=== PATIENT | female | born 2000 | race Caucasian/White ===

== ENCOUNTER 2019-01-24 18:10 | Emergency (ER) | payer SELFPAY ==
[~2019-01-24] VITALS: Ht 165.1 cm; Wt 49.9 kg
[2019-01-24 18:31] VITALS: BP 114/47
--- NOTE | 2019-01-24 18:37 | NUR ---
Patient ambulated to bed 2. RN evaluating patient at bedside.
[2019-01-24] MEDS ORDERED: PREN-380 PO (18:39)
--- NOTE | 2019-01-24 18:40 | NUR ---
Mari rm in [facility] - 01/24/19 at 1843 by ROCHELLE heart tones 152
--- NOTE | 2019-01-24 18:40 | NUR ---
heart tone done by l & d nurse [id number]
--- NOTE | 2019-01-24 18:45 | NUR ---
PT IS A 18 Y/O FEMALE WHO PRESENTS TO THE ED C/O ABD PAIN. PER PATIENT IS C/O ABD CRAMPING. PT REPORTS 5/10 CRAMPING ABD PAIN THAT DOES NOT RADIATE. PT IS CURRENTLY 18 WEEKS S, , LMP 09/20/18. PT DENIES VAGINAL BLEEDING. PT DENIES CP, SOB, N/V/D. PT AWAKE AND ALERT, RR EVEN/UNLABORED. PT REPOSITIONED FOR COMFORT, BED IN LOWEST POSITION. ER PROVIDER NOTIFIED. WILL CONTINUE TO MONITOR.
[2019-01-24 19:56] LABS: APPEARANCE,URINE CLEAR (CLEAR); BILIRUBIN,URINE NEGATIVE (NEGATIVE); BLOOD, URINE NEGATIVE (NEGATIVE); COLOR,URINE YELLOW (YELLOW); LEUKOCYTE ESTERASE ,URINE NEGATIVE (NEGATIVE); NITRITE, URINE NEGATIVE (NEGATIVE); PH,URINE 6.5 (5.0-9.0); UGLUCOSE NEGATIVE (NEGATIVE)
[2019-01-24 20:39] VITALS: BP 110/54
--- NOTE | 2019-01-24 20:39 | NUR ---
PATIENT ELOPED FROM FACILITY. DISCHARGE INSTRUCTIONS NOT GIVEN TO PATIENT. DR. BRAMBILA NOTIFIED.
== END 2019-01-24 20:39 | disposition left against medical advice (07) ==
LOC: MED 18:10
DX: O26.892 Other specified pregnancy related conditions, second trimester (principal); R10.9 Unspecified abdominal pain; Z3A.16 16 weeks gestation of pregnancy; Z79.899 Other long term (current) drug therapy
CPT/HCPCS: 76805; 81003; 81025; 87086; 99284; Q0092

== ENCOUNTER 2019-03-28 19:02 | Emergency (ER) | payer SELFPAY ==
[~2019-03-28] VITALS: Ht 160 cm; Wt 58.1 kg
[~2019-03-28 19:02] MED LIST: PREN-380 PO
[2019-03-28 19:19] VITALS: BP 105/60
--- NOTE | 2019-03-28 19:21 | NUR ---
CALLED UP L & D , AND NOTIFIED ERMD, DR JOAQUIN WILL TAKE CARE OF IT , AND MADE ORDERS.
--- NOTE | 2019-03-28 19:25 | NUR ---
L & D STAFF BRIANNE RN , NOTIFIED THAT PATIENT WILL STAY IN ER.
--- NOTE | 2019-03-28 19:40 | NUR ---
PATIENT AMBULATED TO ER BED 3.
--- NOTE | 2019-03-28 19:51 | NUR ---
DR COLÓN AT BEDSIDE
--- NOTE | 2019-03-28 19:51 | NUR ---
18 Y FEMALE BIB BOYFRIEND C/O LOWER BACK AND ABD PAIN FOR 3 DAYS. DENIES VAGINAL BLEEDING. DENIES N/V/D. LMP 12.5. 29 WEEKS. ONLY COMPALINING OF BACK AND ABDOMINAL PAIN AT THIS TIME 04/08. ABDOMEN ROUND. VSS. PT [id number]. UPPER SORBIAN SPEAKING, DR JOAQUIN TRANSLATING. BED IS DOWN, LOCKED, BED RAIL X 1, DR JOAQUIN AT BEDSIDE.
[2019-03-28 20:47] LABS: BASOPHILS % (AUTO) 0.3 % (0.0-2.0); EOSINOPHILS # (AUTO) 0.1 K/uL (0-0.4); EOSINOPHILS % (AUTO) 0.7 % (0.0-4.0); HEMATOCRIT 33.5 % (36-48); HEMOGLOBIN 11.5 g/dL (12.0-16.0); LYMPHOCYTES % (AUTO) 18.5 % (20.5-51.1); MEAN CORPUSCULAR HEMOGLOBIN 33 pg (27-31); MEAN CORPUSCULAR HGB CONC 34 g/dL (33-37); MEAN CORPUSCULAR VOLUME 96.3 fL (80-94); MONOCYTES # (AUTO) 0.6 K/uL (0.8-1.0); MONOCYTES % (AUTO) 5.9 % (1.7-9.3); NEUTROPHILS # (AUTO) 8.1 K/uL (1.8-7.7); NEUTROPHILS % (AUTO) 74.6 % (42.2-75.2); PLATELET COUNT (AUTO) 256 K/uL (140-450); RED BLOOD CELL COUNT(AUTO) 3.48 MIL/uL (4.20-5.40); RED CELL DISTRIBUTION WIDTH 13.8 % (11.6-13.7); WHITE BLOOD COUNT (AUTO) 10.9 K/uL (4.5-11.0)
[2019-03-28 21:03] LABS: APPEARANCE,URINE CLEAR (CLEAR); BILIRUBIN,URINE NEGATIVE (NEGATIVE); BLOOD, URINE NEGATIVE (NEGATIVE); COLOR,URINE YELLOW (YELLOW); LEUKOCYTE ESTERASE ,URINE TRACE (NEGATIVE); NITRITE, URINE NEGATIVE (NEGATIVE); PH,URINE 6.5 (5.0-9.0); UGLUCOSE NEGATIVE (NEGATIVE)
--- NOTE | 2019-03-28 21:07 | NUR ---
REPORT GIVEN TO RUBEN CALI, TRANSFER OF CARE AT THIS TIME
[2019-03-28 21:18] LABS: ALBUMIN 2.8 g/dL (3.4-5.0); ANION GAP 11.9 (8-16); CARBON DIOXIDE 26.6 mmol/L (21-32); CREATININE 0.4 mg/dL (0.6-1.3); POTASSIUM 3.5 mmol/L (3.5-5.1); TOTAL BILIRUBIN 0.2 mg/dL (0.0-1.0)
[2019-03-28 21:35] LABS: RBC,URINE 0 /HPF (0-5); WBC,URINE 0-5 /HPF (0-5)
--- NOTE | 2019-03-28 21:49 | NUR ---
Dr. Osborn examining patient.
[2019-03-28 21:51] VITALS: BP 105/60
--- NOTE | 2019-03-28 21:51 | NUR ---
Patient discharged with v/s stable. Written and verbal after care instructions given and explained BY ERMD. Patient verbalized understanding. Ambulatory with steady gait. All questions addressed prior to discharge BY ERMD. Advised to follow up with PMD.
== END 2019-03-28 21:51 | disposition home or self-care (01) ==
LOC: MED 19:02
DX: O26.892 Other specified pregnancy related conditions, second trimester (principal); M54.5 Low back pain; Z3A.27 27 weeks gestation of pregnancy; Z79.899 Other long term (current) drug therapy
CPT/HCPCS: 36415; 76805; 80053; 81001; 81025; 84702; 85025; 86900; 86901; 99284; Q0092

== ENCOUNTER 2019-06-13 16:55 | Observation (INO) | payer SELFPAY ==
[~2019-06-13] VITALS: Ht 149.9 cm; Wt 65.8 kg
[2019-06-13 17:13] VITALS: BP 111/67
[2019-06-13 18:41] LABS: BARBITURATE, URINE NEG. ng/ml (NEG <=200); BENZODIAZEPINE, URINE NEG. ng/mL (NEG <=200); CANNABINOID, URINE NEG. ng/mL (NEG <=50); COCAINE, URINE NEG. ng/mL (NEG <=300); OPIATE, URINE NEG. ng/mL (NEG <=2000); PHENCYCLIDINE SCREEN,URINE NEG. ng/mL (NEG <=25)
== END 2019-06-13 22:55 | disposition home or self-care (01) ==
LOC: MLD 16:55
PROVIDERS: ADMIT Obstetrics & Gynecology; ATTEND Obstetrics & Gynecology
DX: O62.9 Abnormality of forces of labor, unspecified (principal); Z3A.36 36 weeks gestation of pregnancy
CPT/HCPCS: 36415; 76805; 76819; 80305; 81000; 86592; 86886; 86900; 86901; 87653; G0378; Q0092; J7120

== ENCOUNTER 2019-06-15 18:22 | Inpatient (IN) | payer MEDICAID ==
[~2019-06-15] VITALS: Ht 152.4 cm; Wt 68.0 kg
[2019-06-15] MEDS ORDERED: PROMETHAZINE 25 MG/ML VIAL IVP ONE (18:45)
[2019-06-15] MEDS ORDERED: CARBOPROST 250 MCG/ML AMP IM PRN (18:45)
[2019-06-15] MEDS ORDERED: NALBUPHINE 10 MG/ML AMP IVP PRN (18:45)
[2019-06-15] MEDS ORDERED: METHYLERGONOVINE 0.2 MG/ML AMP IM PRN (18:45)
[2019-06-15 19:20] VITALS: BP 111/58
[2019-06-15] MEDS: LACTATED RINGERS 1,000 ML IV SCH (19:36)
[2019-06-15 19:39] LABS: BILIRUBIN,URINE NEGATIVE (NEGATIVE); BLOOD, URINE NEGATIVE (NEGATIVE); COLOR,URINE YELLOW (YELLOW); LEUKOCYTE ESTERASE ,URINE 2+ (NEGATIVE); NITRITE, URINE NEGATIVE (NEGATIVE); UGLUCOSE NEGATIVE (NEGATIVE)
[2019-06-15 19:40] LABS: BASOPHILS # (AUTO) 0.1 K/uL (0.00-0.22); BASOPHILS % (AUTO) 0.5 % (0.0-2.0); EOSINOPHILS # (AUTO) 0.1 K/uL (0-0.4); EOSINOPHILS % (AUTO) 0.6 % (0.0-4.0); HEMOGLOBIN 11.4 g/dL (12.0-16.0); LYMPHOCYTES # (AUTO) 2.2 K/uL (2.5-16.5); LYMPHOCYTES % (AUTO) 20.8 % (20.5-51.1); MEAN CORPUSCULAR HEMOGLOBIN 32 pg (27-31); MEAN CORPUSCULAR HGB CONC 34 g/dL (33-37); MEAN CORPUSCULAR VOLUME 94.7 fL (80-94); MONOCYTES # (AUTO) 0.7 K/uL (0.8-1.0); MONOCYTES % (AUTO) 6.4 % (1.7-9.3); NEUTROPHILS # (AUTO) 7.6 K/uL (1.8-7.7); NEUTROPHILS % (AUTO) 71.7 % (42.2-75.2); PLATELET COUNT (AUTO) 297 K/uL (140-450); RED BLOOD CELL COUNT(AUTO) 3.59 MIL/uL (4.20-5.40); RED CELL DISTRIBUTION WIDTH 13.3 % (11.6-13.7); WHITE BLOOD COUNT (AUTO) 10.6 K/uL (4.8-10.8)
[2019-06-15 20:17] LABS: APPEARANCE,URINE CLOUDY (CLEAR)
[2019-06-15 20:21] LABS: RBC,URINE NONE SEEN /HPF (0-5)
[2019-06-15] MEDS ORDERED: MISOPROSTOL 25 MCG TAB ONE (20:28)
[2019-06-15] MEDS ORDERED: OXYTOCIN 20 UNITS in LACTATED RINGERS 1,000 ML IV SCH (20:45)
[2019-06-16] MEDS ORDERED: MISOPROSTOL 25 MCG TAB VG SCH
[2019-06-16] MEDS: LACTATED RINGERS 1,000 ML IV SCH ×5 (03:42→20:30)
[2019-06-16] MEDS ORDERED: cefTRIAXone 1,000 MG VIAL ONE (06:29)
[2019-06-16] MEDS ORDERED: NACL 0.9% 1,000 ML IV ONE (07:00)
[2019-06-16] MEDS ORDERED: OXYTOCIN 20 UNITS/LR PREMIX 1,000 ML IV ONE (08:29)
--- NOTE | 2019-06-16 08:57 | NUR ---
PATIENT HAS BEEN SCREENED AND CATEGORIZED LOW NUTRITION RISK. PATIENT WILL BE SEEN WITHIN 7 DAYS OF ADMISSION. 06/22/[address]
[2019-06-16] MEDS ORDERED: NALBUPHINE 10 MG/ML AMP ONE (15:38)
[2019-06-16] MEDS ORDERED: ROPIVACAINE 0.2%/NS PREMIX 100 ML EPI ONE (19:58)
[2019-06-17] MEDS ORDERED: OXYTOCIN 10 UNITS/ML VIAL IM PRN (03:30)
[2019-06-17] MEDS ORDERED: MEASLES, MUMPS, AND RUBELLA 1 VIAL SQVAC PRN (03:30)
[2019-06-17] MEDS ORDERED: METHYLERGONOVINE 0.2 MG TAB PO PRN (03:30)
[2019-06-17] MEDS ORDERED: oxyCODONE/APAP 5/325 MG 1 TAB TAB PO PRN (03:30)
[2019-06-17] MEDS ORDERED: BENZOCAINE/MENTHOL 20%-0.5% 60 GM CAN TP PRN (03:30)
[2019-06-17] MEDS ORDERED: METHYLERGONOVINE 0.2 MG/ML AMP IM PRN (03:30)
[2019-06-17] MEDS: IBUPROFEN 600 MG TAB PO PRN ×3 (08:19→21:04)
[2019-06-17] MEDS ORDERED: HYDROcodone/APAP 5/325 MG 1 TAB TAB PO PRN (10:25)
[2019-06-17] MEDS ORDERED: DOCUSATE SOD/SENNA 50/8.6 MG 1 TAB PO SCH (21:00)
[2019-06-18] MEDS: IBUPROFEN 600 MG TAB PO PRN ×3 (03:51→19:00)
[2019-06-18 07:07] LABS: HEMATOCRIT 36.6 % (36-48); HEMOGLOBIN 12.4 g/dL (12.0-16.0)
[2019-06-18] MEDS ORDERED: IBUPROFEN 200 MG TAB PO SCH (18:30)
[2019-06-19] MEDS: IBUPROFEN 600 MG TAB PO PRN ×3 (00:51→11:28)
[2019-06-19] MEDS ORDERED: IBUPROFEN 400 MG TAB PO PRN (05:30)
[2019-06-19] MEDS ORDERED: IBUPROFEN 600 MG TAB PO PRN (05:55)
[2019-06-19] MEDS ORDERED: IBUP-2213 PO (12:00)
== END 2019-06-19 13:55 | disposition home or self-care (01) | DRG 560 ==
LOC: MLD 18:22 → MFCC 06-17 05:48
PROVIDERS: ADMIT Obstetrics & Gynecology; ATTEND Obstetrics & Gynecology
PROC: 10E0XZZ Delivery of Products of Conception, External Approach (ICD-10-PCS; principal; 2019-06-17)
PROC: 10907ZC Drainage of Amniotic Fluid, Therapeutic from Products of Conception, Via Natural or Artificial Opening (ICD-10-PCS; 2019-06-17)
PROC: 0UQGXZZ Repair Vagina, External Approach (ICD-10-PCS; 2019-06-17)
PROC: 00HU33Z Insertion of Infusion Device into Spinal Canal, Percutaneous Approach (ICD-10-PCS; 2019-06-17)
PROC: 3E0R3BZ Introduction of Anesthetic Agent into Spinal Canal, Percutaneous Approach (ICD-10-PCS; 2019-06-17)
PROC: 3E0234Z Introduction of Serum, Toxoid and Vaccine into Muscle, Percutaneous Approach (ICD-10-PCS; 2019-06-17)
DX: O41.03X0 Oligohydramnios, third trimester, not applicable or unspecified (principal); O71.4 Obstetric high vaginal laceration alone; Z37.0 Single live birth; Z3A.38 38 weeks gestation of pregnancy; Z23 Encounter for immunization
CPT/HCPCS: 36415; 51702; 59200; 59409; 81001; 85018; 85025; 86592; 87086; 90715; J0696; J2300; J2590; J2795; J7060; J7120

== ENCOUNTER 2020-04-02 16:52 | Emergency (ER) | payer SELFPAY ==
[~2020-04-02] VITALS: Ht 149.9 cm; Wt 54.4 kg
[~2020-04-02 16:52] MED LIST changes: +IBUP-2213 PO
[2020-04-02 16:59] VITALS: BP 146/75
--- NOTE | 2020-04-02 17:07 | NUR ---
URINE CUP HANDED TO PT FOR SAMPLE
--- NOTE | 2020-04-02 17:44 | NUR ---
PT AMBULATED TO BED 5.
--- NOTE | 2020-04-02 17:55 | NUR ---
19/F C/O ERYTHEMA AND PAIN TO LEFT BREAST AND NIPPLE X3 DAYS. PT IS CURRENTLY BREAST FEEDING. ALSO C/O FEVER FOR THE PAST X3 DAYS. PATIENT DENIES ANY DISCHARGE FROM BREAST.
--- NOTE | 2020-04-02 18:02 | NUR ---
Dr. Chaudhary is evaluating the patient at bedside.
--- NOTE | 2020-04-02 18:04 | NUR ---
STOOD IN CRANBERRY BOG SUPERVISOR FOR DR. BENITES DURING PATIENT EXAM
[2020-04-02 18:10] VITALS: BP 135/80
--- NOTE | 2020-04-02 18:10 | NUR ---
Patient discharged with v/s stable. Written and verbal after care instructions given and explained. Patient alert, oriented and verbalized understanding of instructions. Ambulatory with steady gait. All questions addressed prior to discharge. ID band removed. Patient advised to follow up with PMD. Rx of Motrin 400mg and Keflex 500mg given. Patient educated on indication of medication including possible reaction and side effects. Opportunity to ask questions provided and answered.
== END 2020-04-02 18:10 | disposition home or self-care (01) ==
LOC: MED 16:52
DX: N61.0 Mastitis without abscess (principal)
CPT/HCPCS: 81002; 81025; 99283

== ENCOUNTER 2020-12-25 12:48 | Emergency (ER) | payer BC ==
[~2020-12-25] VITALS: Ht 157.5 cm; Wt 59.9 kg
[2020-12-25 12:52] VITALS: BP 105/65
[2020-12-25 13:44] LABS: APPEARANCE,URINE CLEAR (CLEAR); BILIRUBIN,URINE 1+ (NEGATIVE); BLOOD, URINE TRACE-I (NEGATIVE); COLOR,URINE YELLOW (YELLOW); LEUKOCYTE ESTERASE ,URINE NEGATIVE (NEGATIVE); NITRITE, URINE NEGATIVE (NEGATIVE); PH,URINE 6.5 (5.0-9.0); UGLUCOSE NEGATIVE (NEGATIVE)
[2020-12-25 13:44] LABS: BASOPHILS % (AUTO) 0.1 % (0.0-2.0); EOSINOPHILS % (AUTO) 0.2 % (0.0-4.0); HEMATOCRIT 41.4 % (36-48); HEMOGLOBIN 13.9 g/dL (12.0-16.0); LYMPHOCYTES # (AUTO) 1.8 K/uL (2.5-16.5); MEAN CORPUSCULAR HEMOGLOBIN 31 pg (27-31); MEAN CORPUSCULAR HGB CONC 34 g/dL (33-37); MEAN CORPUSCULAR VOLUME 93.6 fL (80-94); MONOCYTES # (AUTO) 0.5 K/uL (0.8-1.0); MONOCYTES % (AUTO) 5.3 % (1.7-9.3); NEUTROPHILS % (AUTO) 75.4 % (42.2-75.2); PLATELET COUNT (AUTO) 253 K/uL (140-450); RED BLOOD CELL COUNT(AUTO) 4.43 MIL/uL (4.20-5.40); RED CELL DISTRIBUTION WIDTH 13.2 % (11.6-13.7); WHITE BLOOD COUNT (AUTO) 9.3 K/uL (4.8-10.8)
[2020-12-25 15:00] VITALS: BP 105/65
[2020-12-25 19:32] LABS: WBC,URINE 0-5 /HPF (0-5)
== END 2020-12-25 15:00 | disposition home or self-care (01) ==
LOC: MED 12:48
DX: O20.0 Threatened abortion (principal); Z3A.01 Less than 8 weeks gestation of pregnancy
CPT/HCPCS: 36415; 76801; 81001; 81025; 84702; 85025; 86900; 86901; 99284

== ENCOUNTER 2021-06-05 14:05 | Emergency (ER) | payer BC ==
[~2021-06-05] VITALS: Ht 165.1 cm; Wt 56.4 kg
[2021-06-05 14:54] VITALS: BP 116/60
[2021-06-05 14:59] VITALS: BP 116/60
--- NOTE | 2021-06-05 14:59 | NUR ---
PT IN ER LOBBY
[2021-06-05] MEDS ORDERED: POLY10SO OP (15:15)
--- NOTE | 2021-06-05 15:15 | NUR ---
dc pt JIMI albrecht. No nursing interventions.
== END 2021-06-05 15:15 | disposition home or self-care (01) ==
LOC: MED 14:05
DX: H10.31 Unspecified acute conjunctivitis, right eye (principal); H00.012 Hordeolum externum right lower eyelid
CPT/HCPCS: 99281

== ENCOUNTER 2022-02-14 14:42 | Emergency (ER) | payer BC ==
[~2022-02-14] VITALS: Ht 151.9 cm; Wt 53.1 kg
[~2022-02-14 14:42] MED LIST changes: +POLY10SO OP
[2022-02-14 14:55] VITALS: BP 124/84
[2022-02-14] MEDS ORDERED: ATA25 PO (15:17)
[2022-02-14 15:29] VITALS: BP 124/84
== END 2022-02-14 15:29 | disposition home or self-care (01) ==
LOC: MED 14:42
DX: F41.9 Anxiety disorder, unspecified (principal); Z79.1 Long term (current) use of non-steroidal anti-inflammatories (NSAID); Z79.2 Long term (current) use of antibiotics; Z79.899 Other long term (current) drug therapy
CPT/HCPCS: 81002; 81025; 99283

== ENCOUNTER 2022-04-02 01:40 | Emergency (ER) | payer BC ==
[~2022-04-02] VITALS: Ht 152.4 cm; Wt 54.4 kg
[~2022-04-02 01:40] MED LIST changes: +ATA25 PO
[2022-04-02 01:44] VITALS: BP 121/78
--- NOTE | 2022-04-02 01:51 | NUR ---
PT TO [facility]. URINE SPECIMEN PROVIDED.
[2022-04-02] MEDS ORDERED: LORazepam 1 MG TAB PO ONE (02:25)
[2022-04-02] MEDS ORDERED: ALUMINUM HYD/MAG/SIMETHICONE 30 ML, DICYCLOMINE HCL LIQUID 20 MG, LIDOCAINE VISCOUS 2% ... PO ONE ×3 (02:25)
[2022-04-02] MEDS ORDERED: IBUPROFEN 800 MG TAB PO ONE (02:25)
[2022-04-02] MEDS ORDERED: PANTOPRAZOLE 40 MG TABEC PO ONE (02:25)
[2022-04-02] MEDS ORDERED: ONDANSETRON 4 MG ODT PO ONE (02:25)
[2022-04-02] MEDS ORDERED: PANT40EC PO (02:28)
[2022-04-02] MEDS ORDERED: DICYCLOMINE HCL LIQUID 10 MG/5 ML UDC ONE (02:39)
[2022-04-02] MEDS ORDERED: ALUMINUM HYD/MAG/SIMETHICONE 30 ML UDC ONE (02:39)
[2022-04-02 03:05] VITALS: BP 121/78
--- NOTE | 2022-04-02 03:05 | NUR ---
Patient discharged with v/s stable. Written and verbal after care instructions given and explained. Patient alert, oriented and verbalized understanding of instructions. Ambulatory with steady gait. All questions addressed prior to discharge. ID band removed. Patient advised to follow up with PMD. Rx of Protonix given. Patient educated on indication of medication including possible reaction and side effects. Opportunity to ask questions provided and answered.
[2022-04-03] MEDS ORDERED: HYDR-637 PO (23:22)
== END 2022-04-02 03:05 | disposition home or self-care (01) ==
LOC: MED 01:40
DX: R10.13 Epigastric pain (principal); F12.229 Cannabis dependence with intoxication, unspecified
CPT/HCPCS: 81002; 81025; 99284; Q0162

== ENCOUNTER 2022-04-03 21:56 | Emergency (ER) | payer BC ==
[~2022-04-03] VITALS: Ht 149.9 cm; Wt 54.0 kg
[~2022-04-03 21:56] MED LIST changes: +PANT40EC PO
[2022-04-03 22:10] VITALS: BP 130/81
--- NOTE | 2022-04-03 22:13 | NUR ---
to lobby a/w bed ambulatory
--- NOTE | 2022-04-03 23:05 | NUR ---
Mari rm in [facility] - 04/04/22 at 0046 by [email or web address] PT BROUGHT TO BED 1 VIA RADHA
[2022-04-03] MEDS ORDERED: HYDR-637 PO (23:22)
[2022-04-03] MEDS: LORazepam 1 MG TAB PO ONE (23:55)
--- NOTE | 2022-04-04 01:00 | NUR ---
ATTEMPTED TO CALL PATIENT X3 TIMES. PATIENT NOT IN LOBBY OR OUTSIDE WAITING AREA.
--- NOTE | 2022-04-04 01:12 | NUR ---
MASOUD LEFT WITHOUT D/C PAPERS.
== END 2022-04-04 01:12 | disposition home or self-care (01) ==
LOC: MED 21:56
DX: F41.9 Anxiety disorder, unspecified (principal); F12.90 Cannabis use, unspecified, uncomplicated; R11.10 Vomiting, unspecified
CPT/HCPCS: 81025; 99283

== ENCOUNTER 2022-08-05 16:58 | Emergency (ER) | payer BC ==
[~2022-08-05] VITALS: Ht 144.8 cm; Wt 49.9 kg
[~2022-08-05 16:58] MED LIST changes: +HYDR-637 PO
[2022-08-05 17:04] VITALS: BP 103/50
[2022-08-05] MEDS ORDERED: ONDANSETRON 4 MG ODT PO ONE (17:45)
[2022-08-05] MEDS ORDERED: ROB PO (18:38)
[2022-08-05] MEDS ORDERED: IBUP-1842 PO (18:38)
[2022-08-05] MEDS ORDERED: CEPH-588 PO (18:38)
[2022-08-05] MEDS ORDERED: ONDA-188 SL (18:38)
--- NOTE | 2022-08-05 18:49 | NUR ---
Patient discharged with v/s stable. Written and verbal after care instructions ABOUT URI AND UTI given and explained. Patient alert, oriented and verbalized understanding of instructions. Ambulatory with steady gait. All questions addressed prior to discharge. ID band removed. Patient advised to follow up with PMD. Rx of KEFLEX, MOTRIN, ZOFRAN, ROBITUSSIN given. Patient educated on indication of medication including possible reaction and side effects. Opportunity to ask questions provided and answered.
== END 2022-08-05 18:49 | disposition home or self-care (01) ==
LOC: MED 16:58
DX: J06.9 Acute upper respiratory infection, unspecified (principal); Z20.822 Contact with and (suspected) exposure to COVID-19; N39.0 Urinary tract infection, site not specified
CPT/HCPCS: 71045; 81002; 81025; 87426; 87804; 99284; Q0162

== ENCOUNTER 2022-12-19 15:57 | Emergency (ER) | payer BC ==
[~2022-12-19 15:57] MED LIST changes: +CEPH-588 PO; +IBUP-1842 PO; +ONDA-188 SL; +ROB PO
--- NOTE | 2022-12-19 16:22 | NUR ---
CALLED IN LOBBY AND OUTSIDE, NO ANSWER AT THIS TIME
--- NOTE | 2022-12-19 16:34 | NUR ---
CALLED IN LOBBY AND OUTSIDE, NO ANSWER AT THIS TIME
--- NOTE | 2022-12-19 16:34 | NUR ---
PATIENT LEFT WITHOUT BEING SEEN BY DR. BENNETT. NO FURTHER CARE PROVIDED FOR PATIENT.
== END 2022-12-19 16:34 | disposition left against medical advice (07) ==
LOC: MED 15:57
DX: M54.9 Dorsalgia, unspecified (principal); Z53.21 Procedure and treatment not carried out due to patient leaving prior to being seen by health care provider

== ENCOUNTER 2023-05-09 21:10 | Emergency (ER) | payer BC ==
[~2023-05-09] VITALS: Ht 157.5 cm; Wt 53.1 kg
[2023-05-09 21:25] VITALS: BP 117/76; PULSE 88; RESP 17; TEMP 97.8; O2SAT 97
[2023-05-09] MEDS ORDERED: LORazepam 1 MG TAB PO ONE (22:00)
[2023-05-09 22:07] VITALS: BP 108/71; PULSE 80; RESP 18; O2SAT 98
[2023-05-09] MEDS ORDERED: ATA25 PO (22:10)
== END 2023-05-09 22:22 | disposition home or self-care (01) ==
LOC: MED 21:10
DX: F41.9 Anxiety disorder, unspecified (principal); R00.2 Palpitations; Z79.899 Other long term (current) drug therapy; Z79.1 Long term (current) use of non-steroidal anti-inflammatories (NSAID); Z79.2 Long term (current) use of antibiotics
CPT/HCPCS: 93005; 99283

== ENCOUNTER 2023-11-17 00:25 | Emergency (ER) | payer BC ==
[~2023-11-17] VITALS: Ht 152.4 cm; Wt 68.0 kg
[2023-11-17 00:44] VITALS: BP 124/81; PULSE 98; RESP 24; TEMP 96.2; O2SAT 99
== END 2023-11-17 01:39 | disposition home or self-care (01) ==
LOC: MED 00:25
DX: F41.9 Anxiety disorder, unspecified (principal); Z53.21 Procedure and treatment not carried out due to patient leaving prior to being seen by health care provider
CPT/HCPCS: 99281

== ENCOUNTER 2024-04-09 00:10 | Emergency (ER) | payer BC ==
[~2024-04-09] VITALS: Ht 157.5 cm; Wt 57.6 kg
[2024-04-09 00:24] VITALS: BP 114/68; PULSE 80; RESP 20; TEMP 98.1; O2SAT 100
[2024-04-09] MEDS: LORazepam 1 MG TAB PO ONE (01:24)
[2024-04-09 02:21] VITALS: BP 114/68; PULSE 80; RESP 20; TEMP 98.1; O2SAT 100
[2024-04-09 02:36] LABS: AMPHETAMINE, URINE NEGATIVE ng/ml (NEG <=1000); BARBITURATE, URINE NEGATIVE ng/ml (NEG <=200); BENZODIAZEPINE, URINE NEGATIVE ng/mL (NEG <=200); CANNABINOID, URINE NEGATIVE ng/mL (NEG <=50); COCAINE, URINE NEGATIVE ng/mL (NEG <=300); OPIATE, URINE NEGATIVE ng/mL (NEG <=2000); PHENCYCLIDINE SCREEN,URINE NEGATIVE ng/mL (NEG <=25)
== END 2024-04-09 02:21 | disposition home or self-care (01) ==
LOC: MED 00:10
DX: F41.9 Anxiety disorder, unspecified (principal); F12.90 Cannabis use, unspecified, uncomplicated; Z79.1 Long term (current) use of non-steroidal anti-inflammatories (NSAID); Z79.2 Long term (current) use of antibiotics; Z79.899 Other long term (current) drug therapy
CPT/HCPCS: 80305; 81025; 99283

== ENCOUNTER 2024-05-19 11:31 | Emergency (ER) | payer BC ==
[~2024-05-19] VITALS: Ht 152.4 cm; Wt 60.4 kg
[2024-05-19 11:40] VITALS: BP 114/74; PULSE 98; RESP 16; TEMP 98; O2SAT 99
[2024-05-19] MEDS: KETOROLAC 30 MG/ML VIAL IM ONE (13:07)
[2024-05-19] MEDS: METOCLOPRAMIDE 10 MG/2 ML INJ VIAL IM ONE (13:08)
[2024-05-19] MEDS ORDERED: ACET-2619 PO (14:09)
[2024-05-19 14:22] VITALS: O2SAT 99
== END 2024-05-19 14:20 | disposition home or self-care (01) ==
LOC: MED 11:31
DX: R51.9 Headache, unspecified (principal); R42 Dizziness and giddiness; H53.8 Other visual disturbances; Z79.1 Long term (current) use of non-steroidal anti-inflammatories (NSAID); Z79.899 Other long term (current) drug therapy
CPT/HCPCS: 81025; 96372; 99284; J1885; J2765

== ENCOUNTER 2024-07-09 22:26 | Emergency (ER) | payer BC ==
[~2024-07-09] VITALS: Ht 149.9 cm; Wt 60.9 kg
[~2024-07-09 22:26] MED LIST changes: +ACET-2619 PO
[2024-07-09 22:30] VITALS: BP 103/71; PULSE 83; RESP 18; TEMP 97.6; O2SAT 99
[2024-07-09] MEDS: LORazepam 0.5 MG TAB PO ONE (23:39)
[2024-07-10 01:05] LABS: AMPHETAMINE, URINE NEGATIVE ng/ml (NEG <=1000); BARBITURATE, URINE NEGATIVE ng/ml (NEG <=200); BENZODIAZEPINE, URINE NEGATIVE ng/mL (NEG <=200); CANNABINOID, URINE NEGATIVE ng/mL (NEG <=50); COCAINE, URINE NEGATIVE ng/mL (NEG <=300); OPIATE, URINE NEGATIVE ng/mL (NEG <=2000); PHENCYCLIDINE SCREEN,URINE NEGATIVE ng/mL (NEG <=25)
[2024-07-10 01:12] VITALS: BP 107/59; PULSE 60; RESP 14; O2SAT 98
== END 2024-07-10 01:27 | disposition home or self-care (01) ==
LOC: MED 22:26
DX: F41.9 Anxiety disorder, unspecified (principal); R06.02 Shortness of breath; R00.2 Palpitations; Z79.899 Other long term (current) drug therapy
CPT/HCPCS: 71045; 80305; 81025; 93005; 99285; Q0092

== ENCOUNTER 2024-07-27 22:06 | Emergency (ER) | payer BC ==
[~2024-07-27] VITALS: Ht 157.5 cm; Wt 65.8 kg
[2024-07-27 22:51] VITALS: BP 98/67; PULSE 72; RESP 16; TEMP 99.3; O2SAT 99
[2024-07-27] MEDS ORDERED: ATA25 PO (23:26)
[2024-07-27 23:32] VITALS: BP 98/67; PULSE 72; RESP 16; TEMP 99.3; O2SAT 99
== END 2024-07-27 23:31 | disposition home or self-care (01) ==
LOC: MED 22:06
DX: F41.9 Anxiety disorder, unspecified (principal); R06.02 Shortness of breath; R45.0 Nervousness; F43.0 Acute stress reaction; Z79.899 Other long term (current) drug therapy
CPT/HCPCS: 99283